=== PATIENT | male | born 1995 | race African-American/Black ===

== ENCOUNTER 2022-03-10 19:17 | Emergency (ER) | payer MEDICAID ==
[~2022-03-10] VITALS: Ht 180.3 cm; Wt 73.0 kg
[2022-03-11] MEDS ORDERED: IBUPROFEN 600MG TABLET PO ONE (00:15)
[2022-03-11 01:00] VITALS: BP 132/82
[2022-03-11] MEDS ORDERED: NAPR-1176 MT (01:00)
[2022-03-11] MEDS ORDERED: CYCL10TA21 MT (01:00)
== END 2022-03-11 01:15 | disposition home or self-care (01) ==
LOC: ER 19:17
DX: S42.002A Fracture of unspecified part of left clavicle, initial encounter for closed fracture (principal); W18.39XA Other fall on same level, initial encounter; Y93.89 Activity, other specified; Y92.89 Other specified places as the place of occurrence of the external cause; Y99.8 Other external cause status
CPT/HCPCS: 73030; 99283; A4565

== ENCOUNTER 2022-08-30 15:13 | Emergency (ER) | payer MEDICAID ==
[~2022-08-30] VITALS: Ht 180.3 cm; Wt 73.0 kg
[~2022-08-30 15:13] MED LIST: CYCL10TA21 MT; NAPR-1176 MT
[2022-08-30 15:23] VITALS: BP 117/71
[2022-08-30] MEDS ORDERED: DOXYCYCLINE HYCLATE 100MG CAPSULE PO ONE (15:30)
[2022-08-30] MEDS ORDERED: CEFTRIAXONE SODIUM 500 MG/VIAL IM ONE (15:30)
[2022-08-30] MEDS ORDERED: DOXY100C5 MT (16:33)
[2022-08-30 16:38] LABS: CLARITY URINE TURBID (CLEAR); COLOR URINE YELLOW (YELLOW); KETONES URINE NEGATIVE (NEGATIVE); LEUKOCYTE ESTERASE URINE TRACE (NEGATIVE); NITRITE URINE NEGATIVE (NEGATIVE); OCCULT BLOOD URINE NEGATIVE (NEGATIVE); PH URINE 7.5 (4.5-8.0); PROTEIN URINE TRACE (NEGATIVE); SPECIFIC GRAVITY URINE 1.021 (1.005-1.030)
[2022-09-03 04:07] LABS: NEISSERIA GONORRHOEAE NAA Negative (Negative)
== END 2022-08-30 17:08 | disposition home or self-care (01) ==
LOC: ER 15:13
DX: N36.8 Other specified disorders of urethra (principal); Z11.3 Encounter for screening for infections with a predominantly sexual mode of transmission
CPT/HCPCS: 81003; 86592; 87491; 87591; 96372; 99283; J0696